=== PATIENT | female | born 1965 | race Caucasian/White ===

== ENCOUNTER 2017-11-01 18:10 | Emergency (ER) | payer OTHER ==
[~2017-11-01] VITALS: Ht 152.4 cm; Wt 89.8 kg
[~2017-11-01 18:10] MED LIST: BACTRIM DS TAB1 EACH PO; GLUCOPHAGE850 MG PO; GLUCOTROL5 MG PO; HYDROCODONE-AP1 EAC6 PO; IBUPROFEN 800800 M1 PO; INSULIN SUPPLIES; LANTUS100 UNIT/M SUBQ; LIDOCAINE 22 %/30 GM TOP; NOVOLOG100 UNIT/1 SUBQ; NYSTATIN 100,0015 G1 TP; OSELB75 PO
[2017-11-01 19:13] LABS: ABSOLUTE BASOPHILS 0.1 thou/uL (0.0-0.2); ABSOLUTE EOSINOPHILS 0.3 thou/uL (0.0-0.7); ABSOLUTE LYMPHOCYTES 1.4 thou/uL (0.8-5.3); ABSOLUTE MONOCYTES 0.3 thou/uL (0.0-1.2); ABSOLUTE NEUTROPHILS 3.7 thou/uL (1.6-8.1); EOSINOPHILS 4.4 %; HEMATOCRIT 36.8 % (37.0-47.0); HEMOGLOBIN 12.3 gm/dL (12.0-15.0); LYMPHOCYTES 25.2 %; MCH 28.7 pg (26.0-34.0); MCHC 33.6 g/dL (28.0-37.0); MCV 85.6 fL (80.0-100.0); MONOCYTES 5.3 %; MPV 8.7 fl. (7.2-11.1); NUCLEATED RBCS 0 /100WBC; PLATELET COUNT* 181 thou/uL (150-400); POLYS 64.1 %; RBC 4.29 mil/uL (4.20-5.00); RDW-CV 14.3 % (10.5-14.5); WBC 5.7 thou/uL (4.0-11.0)
[2017-11-01 19:17] LABS: CALCIUM 8.8 mg/dL (8.5-10.1); CREATININE 0.7 mg/dL (0.6-1.3); POTASSIUM 3.8 mmol/L (3.5-5.1)
[2017-11-01 19:22] LABS: ALBUMIN 3.1 g/dL (3.4-5.0); TOTAL BILIRUBIN 0.2 mg/dL (<0.1-1.0); TOTAL PROTEIN 6.8 g/dL (6.4-8.2)
[2017-11-01] MEDS ORDERED: KEFLEX500 M1 PO (19:45)
[2017-11-01] MEDS ORDERED: BACTRIM DS TAB1 EACH PO (19:45)
[2017-11-01 20:30] VITALS: BP 152/74
== END 2017-11-01 20:34 | disposition home or self-care (01) ==
LOC: M.ERS 18:10
PROVIDERS: Nurse Practitioner Family
DX: L03.116 Cellulitis of left lower limb (principal); L03.032 Cellulitis of left toe; E11.9 Type 2 diabetes mellitus without complications; Z90.49 Acquired absence of other specified parts of digestive tract; Z79.4 Long term (current) use of insulin

== ENCOUNTER 2021-05-08 18:54 | Inpatient (IN) | payer OTHER ==
[~2021-05-08] VITALS: Ht 152.4 cm; Wt 99.3 kg
[~2021-05-08 18:54] MED LIST changes: +KEFLEX500 M1 PO
[2021-05-08 19:36] VITALS: BP 230/109
[2021-05-08] MEDS ORDERED: NEURONTIN100 MG PO (19:45)
[2021-05-08] MEDS ORDERED: METFORMIN HCL500 M3 PO (19:46)
[2021-05-08] MEDS ORDERED: ZESTRIL20 MG PO (19:46)
[2021-05-08 20:21] LABS: ABSOLUTE EOSINOPHILS 0.1 thou/uL (0.0-0.7); ABSOLUTE LYMPHOCYTES 0.7 thou/uL (0.8-5.3); ABSOLUTE MONOCYTES 0.3 thou/uL (0.0-1.2); ABSOLUTE NEUTROPHILS 3.7 thou/uL (1.6-8.1); EOSINOPHILS 2.7 %; HEMATOCRIT 34.7 % (37.0-47.0); HEMOGLOBIN 11.2 gm/dL (12.0-15.0); LYMPHOCYTES 13.6 %; MCH 27.6 pg (26.0-34.0); MCHC 32.3 g/dL (28.0-37.0); MCV 85.7 fL (80.0-100.0); MPV 8.3 fl. (7.2-11.1); NUCLEATED RBCS 0 /100WBC; PLATELET COUNT* 197 thou/uL (150-400); POLYS 76.7 %; RBC 4.05 mil/uL (4.20-5.00); RDW-CV 14.7 % (10.5-14.5); WBC 4.8 thou/uL (4.0-11.0)
[2021-05-08 20:30] LABS: CALCIUM 8.3 mg/dL (8.5-10.1); CREATININE 1.1 mg/dL (0.6-1.3); POTASSIUM 4.6 mmol/L (3.5-5.1)
[2021-05-08 20:41] LABS: TOTAL BILIRUBIN 0.5 mg/dL (<0.1-1.0); TOTAL PROTEIN 6.4 g/dL (6.4-8.2)
[2021-05-08] MEDS ORDERED: LISINOPRIL-HCT1 EAC2 PO (20:53)
[2021-05-08 21:17] LABS: URINE BILIRUBIN NEGATIVE (Negative); URINE BLOOD 2+ (Negative); URINE COLOR YELLOW; URINE GLUCOSE-RANDOM 3+ (Negative); URINE KETONES 2+ (Negative); URINE LEUKOCYTES-REFLEX NEGATIVE (Negative); URINE NITRITE-REFLEX NEGATIVE (Negative); URINE PROTEIN 2+ (Negative); URINE SPECIFIC GRAVITY 1.025 (1.005-1.030); URINE UROBILINOGEN 0.2 E.U./dl (0.2-1.0)
[2021-05-08 21:20] LABS: URINE CLARITY SL CLOUDY
[2021-05-08 21:28] LABS: SQUAMOUS 0-3 Few /LPF (0-3); URINE WBC-REFLEX >25 Many /HPF (0-5); WBC CLUMPS Few (None Seen)
[2021-05-08 21:29] LABS: BACTERIA-REFLEX >30 Many /HPF (None Seen); CRYSTALS None Seen /LPF (None Seen); FINE GRANULAR CASTS 0-3 Few /LPF (None Seen); HYALINE CASTS 0-3 Few /LPF (None Seen); MUCUS 4-6 Moderate strn/LPF (None Seen)
[2021-05-09] VITALS (7 sets, daily range): BP systolic 166–200; BP diastolic 66–96
--- NOTE | 2021-05-09 09:39 | EKG ---
[place] [address] ELECTROCARDIOGRAM REPORT Name: SOFI GEORGE Ambika Room: [address] ADM IN ..#: [id number] Admission: 05/08/21 Attend Phys: Polly Mann, Discharge: Date of : 61 Date of Service: 05/08/211950 Report #: [id number] THIS REPORT FOR: //name// [facility] ED Test Date: 2021-05-08 Test Time: 19:51:18 Pat Name: SOFI GEORGE Department: Room: [facility] Gender: F Traveling Nurse: TJConstantin : 1965 Requested By: Katerin Freeman Order Number: [id number] MD: Tani Butler Measurements Intervals [place] Rate: 107 P: 51 GA: 139 QRS: 27 QRSD: 85 T: 34 QT: 351 QTc: 469 Interpretive Statements Sinus tachycardia Probable left atrial enlargement Compared to ECG 04/18/2016 14:16:38 rate has slowed Electronically Signed On 05-09-2021 9:38:48 GRINDING MACHINE TENDER by Tani Butler [email or web address] <ELECTRONICALLY SIGNED> By: Tani Butler MD, FAC 05/09/21 0938 50 50 Tani Butler MD, [facility] /EPI
[2021-05-09] MEDS ORDERED: TIMOLOL MALEATE5 M2 OPHTHALMIC (11:14)
[2021-05-09] MEDS ORDERED: LEVEMIR100 UNIT/1 SUBQ (11:17)
--- NOTE | 2021-05-09 11:19 | NUR ---
PTS MEDICATION LIST UPDATED VIA [facility] WITH THE PHARMACIST
--- NOTE | 2021-05-09 14:30 | NUR ---
Nutrition: Pt admitted to COVID unit. Consult received for "covid." Wt: 219#. Meds: remdesivir, lisinopril, metformin, insulin. Labs: BG 400s, albumin 3. Pt on special precautions tray. RD will add CHO count to diet order for better BG control. Unable to get ahold of RN. No meal intake % recorded. H/o DM. Altered nutrition-related lab values R/T BG AEB labs above. Consider mild nutrition risk at this time.
--- NOTE | 2021-05-09 15:35 | NUR ---
CM ASSESSMENT ASSESSMENT COMPLETED WITH PT VIA PHONE. PT LIVES WITH SPOUSE AND CHILDREN IN SINGLE STORY HOME. PT HAS HX OF USING A CANE, BUT DOES NOT CURRENTLY USE ONE. PT ABLE TO IND BATH SELF AND MANAGE MEDS. PT ABLE TO DRESS SELF, BUT GETS HELP WITH BRA. PT DOES NOT USE ANY OTHER DME. PT HAS NO HX OF SNF, ARU, OR HH. PT NOT MED CLEAR FOR DC. CM TO FOLLOW.
--- NOTE | 2021-05-09 16:37 | 2DMMODE ---
[place] [address] 2 D/M-MODE ECHOCARDIOGRAM Name: ARIELSOFI J Room: [address] IN [facility]#: [id number] Admission: 05/08/21 Attend Phys: Polly Mann, Discharge: Date of : 61 Date of Service: 05/09/21 1636 Report #: [id number] THIS REPORT FOR: cc: Giovanny Ramírez Preston B. DO Blick, David R. MD [facility] ~ APPROVED REPORT Study performed: 05/09/2021 14:52:43 EXAM: Comprehensive 2D, Doppler, and color-flow Echocardiogram Patient Location: In-Patient Room #: [facility] Status: routine BSA: 1.94 HR: 97 bpm BP: 200/84 mmHg Rhythm: NSR Other Information Study Quality: Good Indications Dyspnea 2D Dimensions IVSd: 11.84 (7-11mm) LVOT Diam: 19.28 (18-24mm) LVDd: 51.22 mm PWd: 10.51 (7-11mm) Ascending Ao: 27.11 (22-36mm) LVDs: 39.33 (25-40mm) Aortic Root: 28.50 mm Volumes Left Atrial Volume (Systole) LA ESV Index: 30.20 mL/m2 Aortic Valve AoV Peak Doug.: 1.52 m/s AO Peak Gr.: 9.19 mmHg LVOT Max P.96 mmHg AO Mean Gr.: 5.29 mmHg LVOT Mean P.06 mmHg LVOT Max V: 0.99 m/s AO V2 VTI: 31.01 cm LVOT Mean V: 0.67 m/s JOHAN (VTI): 2.15 cm2 LVOT V1 VTI: 22.79 [place] [address] 2 D/M-MODE ECHOCARDIOGRAM Name: SOFI GEORGE Room: [address] IN ..#: [id number] Admission: 05/08/21 Attend Phys: Polly Mann, Discharge: Date of : 61 Date of Service: 05/09/21 1636 Report #: [id number] Mitral Valve E/A Ratio: 0.81 MV Decel. Time: 145.76 ms MV E Max Doug.: 1.01 m/s MV PHT: 42.27 ms MVA (PHT): 5.20 cm2 TDI E/Lateral E': 12.63 E/Medial E': 10.10 Medial E' Doug.: 0.10 m/s Lateral E' Doug.: 0.08 m/s Pulmonary Valve PV Peak Doug.: 0.98 m/s PV Peak Gr.: 3.87 mmHg Left Ventricle The left ventricle is normal size. There is global hypokinesis of the left ventricle. There is normal left ventricular wall thickness. Left ventricular systolic function is mildly decreased.. LVEF is 40-45%. Grade I - abnormal relaxation pattern. Right Ventricle The right ventricle is normal size. The right ventricular systolic function is normal. Atria Left atrium is mildly dilated. The right atrium size is normal. Aortic Valve The aortic valve is normal in structure. No aortic regurgitation is present. There is no aortic valvular stenosis. Mitral Valve The mitral valve is normal in structure. Mild mitral regurgitation. No evidence of mitral valve stenosis. Tricuspid Valve The tricuspid valve is normal in structure. Trace tricuspid regurgitation. Pulmonic Valve Pulmonic valve is not well visualized. There is no pulmonic valvular regurgitation[place] [address] 2 D/M-MODE ECHOCARDIOGRAM Name: SOFI GEORGE Ambika Room: [address] IN [facility]#: [id number] Admission: 05/08/21 Attend Phys: Polly Mann, Discharge: Date of : 61 Date of Service: 05/09/21 1636 Report #: [id number] The aortic root is normal in size. IVC is normal in size and collapses >50% with inspiration. Pericardium There is no pericardial effusion. <Conclusion> LVEF is 40-45%. Left atrium is mildly dilated. Mild mitral regurgitation. There is global hypokinesis of the left ventricle. <ELECTRONICALLY SIGNED> By: Tani Butler MD, [facility] 05/09/21 1636 1636 1636 Tani Butler MD, FAC /INF
[2021-05-10 03:58] VITALS: BP 109/78
--- NOTE | 2021-05-10 07:30 | NUR ---
CHANGE OF SHIFT REPORT GIVEN PATIENT SEEN AT BEDSIDE, IN BED ASLEEP ASSUMED PATIENT CARE
[2021-05-10 08:00] VITALS: BP 222/94
[2021-05-10 12:00] VITALS: BP 215/95
[2021-05-10 16:00] VITALS: BP 180/77
[2021-05-10 20:56] VITALS: BP 196/83
[2021-05-11] VITALS: BP 160/69
[2021-05-11 04:00] VITALS: BP 161/59
[2021-05-11 05:46] LABS: HEMATOCRIT 29.7 % (37.0-47.0); HEMOGLOBIN 9.8 gm/dL (12.0-15.0); MCH 27.8 pg (26.0-34.0); MCHC 32.9 g/dL (28.0-37.0); MCV 84.6 fL (80.0-100.0); MPV 8.7 fl. (7.2-11.1); RBC 3.51 mil/uL (4.20-5.00); RDW-CV 14.4 % (10.5-14.5); WBC 2.7 thou/uL (4.0-11.0)
[2021-05-11 06:00] LABS: CALCIUM 8.1 mg/dL (8.5-10.1); CREATININE 0.9 mg/dL (0.6-1.3); POTASSIUM 4.1 mmol/L (3.5-5.1)
--- NOTE | 2021-05-11 07:15 | NUR ---
CHANGE OF SHIFT REPORT GIVEN PATIENT SEEN AT BEDSIDE, IN BED ASLEEP ASSUMED PATIENT CARE
--- NOTE | 2021-05-11 07:20 | NUR ---
CHANGE OF SHIFT REPORT GIVEN PATIENT SEEN AT BEDSIDE, IN BED ASLEEP ASSUMED PATIENT CARE
[2021-05-11 08:00] VITALS: BP 198/83
[2021-05-11 12:00] VITALS: BP 187/72
[2021-05-11 16:11] VITALS: BP 179/75
[2021-05-11 20:25] VITALS: BP 195/86
[2021-05-12 00:34] VITALS: BP 177/92
[2021-05-12 03:34] VITALS: BP 178/82
[2021-05-12 08:00] VITALS: BP 114/72
[2021-05-12 08:46] LABS: CALCIUM 8.6 mg/dL (8.5-10.1); POTASSIUM 4.4 mmol/L (3.5-5.1)
[2021-05-12 11:55] VITALS: BP 198/50
[2021-05-12] MEDS ORDERED: PREDNISONE 10 M10 MG PO (13:44)
[2021-05-12] MEDS ORDERED: TESSALON PERLE100 MG PO (13:44)
[2021-05-12] MEDS ORDERED: LEVOFLOXACIN500 MG PO (13:44)
[2021-05-12 13:58] VITALS: BP 198/50
--- NOTE | 2021-05-12 16:38 | NUR ---
CM FOLLOWUP PT MED CLEAR FOR DC HOME. PT HAS NO CM NEEDS.
== END 2021-05-12 15:00 | disposition home or self-care (01) | DRG 177 ==
LOC: M.ERS 18:54 → M.TBA-ER 21:21 → M.ORTHSURG 05-09 05:52
PROVIDERS: Emergency Medicine; Internal Medicine; ADMIT Internal Medicine; ATTEND Internal Medicine
PROC: XW033E5 Introduction of Remdesivir Anti-infective into Peripheral Vein, Percutaneous Approach, New Technology Group 5 (ICD-10-PCS; principal; 2021-05-08)
DX: U07.1 COVID-19 (principal); E11.10 Type 2 diabetes mellitus with ketoacidosis without coma; J12.82 Pneumonia due to coronavirus disease 2019; N39.0 Urinary tract infection, site not specified; I50.9 Heart failure, unspecified; Z79.4 Long term (current) use of insulin; Z90.49 Acquired absence of other specified parts of digestive tract; I11.0 Hypertensive heart disease with heart failure; Z83.3 Family history of diabetes mellitus; Z82.49 Family history of ischemic heart disease and other diseases of the circulatory system